=== PATIENT | male | born 1960 | race Caucasian/White ===

== ENCOUNTER → 2019-10-01 | Outpatient (CLI) | payer BC ==
[~2019-10-01] MED LIST: ACET325T26 PO; APIX5TAB PO; COLC0.6C3 PO; DIGO125T PO; FLEC50TA25 PO; LISI5TAB7 PO; OMNIPAQUE 350 MG/ML, 150 ML BOTTLE ONE
== END | disposition home or self-care (01) ==
LOC: CFH 15:01
PROVIDERS: ATTEND Internal Medicine Cardiovascular Disease
DX: I48.0 Paroxysmal atrial fibrillation (principal)
CPT/HCPCS: 71046; 75572; Q9967

== ENCOUNTER 2019-10-03 09:50 | Observation (INO) | payer BC ==
[~2019-10-03] VITALS: Ht 175.3 cm; Wt 92.8 kg
[2019-10-03] MEDS ORDERED: SODIUM CHLORIDE 0.9% 1,000 ML IV SCH (10:59)
[2019-10-03] MEDS ORDERED: SODIUM CHLORIDE 0.9% 1,000 ML IV ONE (11:00)
[2019-10-03 11:07] VITALS: BP 156/98
[2019-10-03] MEDS ORDERED: DIGO125T PO (11:15)
[2019-10-03] MEDS ORDERED: LISI5TAB7 PO (11:15)
[2019-10-03] MEDS ORDERED: FLEC50TA25 PO (11:15)
[2019-10-03 12:00] LABS: INTERNATIONAL NORMALIZED RATIO 0.96 (0.93-1.1); PROTHROMBIN TIME 10.1 Seconds (9.6-11.5)
[2019-10-03 12:04] LABS: ALANINE AMINOTRANSFERASE 27 U/L (12-78); ALBUMIN 4.1 g/dL (3.4-5.0); ANION GAP 7 mmol/L (5-15); BASOPHILS # (AUTO) 0.05 x10^3/uL (0-0.1); BASOPHILS % (AUTO) 1 % (0-1); CALCIUM 9.1 mg/dL (8.5-10.1); CHLORIDE 109 mmol/L (98-107); CREATININE 0.86 mg/dL (0.7-1.3); EOSINOPHILS # (AUTO) 0.09 x10^3/uL (0-0.4); EOSINOPHILS % (AUTO) 2 % (1-7); LYMPHOCYTES # (AUTO) 1.79 x10^3/uL (1-3.4); LYMPHOCYTES % (AUTO) 29 % (22-44); MD NO; MEAN CORPUSCULAR HEMOGLOBIN 31.2 pg (27.5-34.5); MEAN CORPUSCULAR HGB CONC 33.3 g/dL (33.2-36.2); MEAN CORPUSCULAR VOLUME 93.7 fL (81-97); MEAN PLATELET VOLUME 8.8 fL (7.4-10.4); MONOCYTES # (AUTO) 0.43 x10^3/uL (0.2-0.8); MONOCYTES % (AUTO) 7 % (2-9); NEUTROPHILS # (AUTO) 3.92 x10^3/uL (1.8-6.8); NEUTROPHILS % (AUTO) 62 % (42-75); PLATELET COUNT 268 x10^3/uL (130-400); RED BLOOD COUNT 5.08 x10^6/uL (4.38-5.82); RED CELL DISTRIBUTION WIDTH 13.4 % (9.4-14.8)
[2019-10-03 12:06] LABS: ALKALINE PHOSPHATASE 87 U/L (45-117); BILIRUBIN,TOTAL 0.4 mg/dL (0.2-1.0); TOTAL PROTEIN 7.3 g/dL (6.4-8.2)
[2019-10-03] MEDS ORDERED: LIDOCAINE 1%, 20ML ONE (14:33)
[2019-10-03] MEDS ORDERED: FENTANYL PF 250 MCG/5ML ONE (14:35)
[2019-10-03] MEDS ORDERED: MIDAZOLAM 1 MG/ML, 2ML ONE (14:35)
[2019-10-03] MEDS ORDERED: DEXAMETHASONE 4 MG/ML, 1ML ONE (15:13)
[2019-10-03] MEDS ORDERED: HEPARIN 1,000 UNITS/ML, 10ML ONE ×3 (15:16→16:10)
[2019-10-03] MEDS ORDERED: SUCCINYLCHOLINE 20 MG/ML, 10ML ONE (15:16)
[2019-10-03] MEDS ORDERED: PROPOFOL 10 MG/ML, 20ML ONE (15:16)
[2019-10-03] MEDS ORDERED: ROCURONIUM 10MG/ML,5ML ONE (15:16)
[2019-10-03] MEDS ORDERED: EPHEDRINE 50 MG/ML, 1ML ONE (15:39)
[2019-10-03] MEDS ORDERED: FENTANYL PF 100 MCG/2ML ONE ×3 (16:31→18:10)
[2019-10-03] MEDS ORDERED: ONDANSETRON 2MG/ML, 2ML ONE (17:36)
[2019-10-03] MEDS ORDERED: OXYcodone 5 MG/5 ML ORAL.SOL UDC PO PRN ×2 (18:00→18:30)
[2019-10-03] MEDS ORDERED: ALBUTEROL SULFATE 2.5 MG/3 ML NPPB PRN (18:00)
[2019-10-03] MEDS ORDERED: EPHEDRINE 50 MG/ML, 1ML IVPush PRN (18:00)
[2019-10-03] MEDS ORDERED: ACETAMINOPHEN 325 MG TABLET PO PRN ×2 (18:00)
[2019-10-03] MEDS ORDERED: MIDAZOLAM 1 MG/ML, 2ML IV PRN (18:00)
[2019-10-03] MEDS ORDERED: HALOPERIDOL 5 MG/ML IV PRN (18:00)
[2019-10-03] MEDS ORDERED: hydrALAzine 20 MG/ML, 1ML IV PRN (18:00)
[2019-10-03] MEDS ORDERED: ONDANSETRON 2MG/ML, 2ML IV PRN (18:00)
[2019-10-03] MEDS ORDERED: ONDANSETRON ODT 8 MG PO PRN (18:00)
[2019-10-03] MEDS ORDERED: PROMETHAZINE 12.5 MG SUPP PR PRN (18:00)
[2019-10-03] MEDS ORDERED: LABETALOL 5MG/ML, 20ML IV PRN (18:00)
[2019-10-03] MEDS ORDERED: MEPERIDINE/PF 25MG/ML,1ML IVPush PRN (18:00)
[2019-10-03] MEDS ORDERED: PROMETHAZINE 25 MG/ML, 1ML IV PRN (18:00)
[2019-10-03] MEDS ORDERED: OXYcodone 5 MG/5 ML ORAL.SOL UDC ONE (18:10)
[2019-10-03] MEDS ORDERED: APIXABAN 5 MG TABLET ONE (18:11)
[2019-10-03] MEDS: FENTANYL PF 100 MCG/2ML IV PRN ×2 (18:14→18:20)
[2019-10-03] MEDS: APIXABAN 5 MG TABLET PO SCH (18:14)
[2019-10-03] MEDS ORDERED: DIAZEPAM 5 MG/ML, 2ML ONE (18:25)
[2019-10-03] MEDS: DIAZEPAM 5 MG/ML, 2ML IVPush PRN ×2 (18:27→18:37)
[2019-10-03] MEDS ORDERED: FENTANYL PF 100 MCG/2ML IV PRN (18:30)
[2019-10-03] MEDS ORDERED: HYDROmorphone 1 MG/ML, 1ML INJ ONE (18:34)
[2019-10-03] MEDS: HYDROmorphone 2 MG/ML, 1ML IVPush PRN ×2 (18:36→18:53)
[2019-10-03 21:22] VITALS: BP 144/88
[2019-10-03] MEDS: COLCHICINE 0.6 MG CAPSULE PO SCH (21:27)
[2019-10-03] MEDS: FLECAINIDE 50MG TABLET PO SCH (21:27)
[2019-10-04 00:43] VITALS: BP 140/73
[2019-10-04 07:14] VITALS: BP 171/97
[2019-10-04] MEDS ORDERED: ACET325T26 PO (08:02)
[2019-10-04] MEDS ORDERED: APIX5TAB PO (08:02)
[2019-10-04] MEDS ORDERED: COLC0.6C3 PO (08:02)
[2019-10-04] MEDS ORDERED: LISINOPRIL 5 MG TABLET PO SCH (09:00)
[2019-10-04] MEDS ORDERED: DIGOXIN 0.125 MG TABLET PO SCH (09:00)
[2019-10-04] MEDS: COLCHICINE 0.6 MG CAPSULE PO SCH (09:41)
[2019-10-04] MEDS: FLECAINIDE 50MG TABLET PO SCH (09:41)
[2019-10-04] MEDS: APIXABAN 5 MG TABLET PO SCH (09:41)
[2019-10-04] MEDS ORDERED: FLU VACC QS2019-20 36MOS UP/PF 0.5 ML IM-VACC ONE (12:30)
== END 2019-10-04 13:25 | disposition home or self-care (01) ==
LOC: CACL 09:50 → ORIP 17:49 → 5SO 19:45 → DCLOUNGE 10-04 13:06
PROVIDERS: ADMIT Internal Medicine Cardiovascular Disease; ATTEND Internal Medicine Cardiovascular Disease
DX: I48.91 Unspecified atrial fibrillation (principal); I48.92 Unspecified atrial flutter; N52.9 Male erectile dysfunction, unspecified; I10 Essential (primary) hypertension; Z79.899 Other long term (current) drug therapy; Z23 Encounter for immunization
CPT/HCPCS: 36415; 80053; 85025; 85610; 90471; 90686; 93306; 93312; 93321; 93325; 93613; 93655; 93656; 93662; C1730; C1732; C1759; C1766; C1893; C1894; G0378; J0330; J1100; J1170; J1644; J2250; J2405; J2704; J3010; J3360; J3490; 85347